=== PATIENT | male | born 1975 | race Caucasian/White ===

== ENCOUNTER 2016-10-02 19:21 | Emergency (ER) | payer OTHER ==
[~2016-10-02] VITALS: Ht 177.8 cm; Wt 147.5 kg
[~2016-10-02 19:21] MED LIST: BACTDS PO; CEPH-443 PO; FIORICET PO; HYDR-762 PO; IBUP800T25 PO; SUMA100T9 PO; XANAX PO
[2016-10-02 19:30] VITALS: Ht 177.8 cm; Wt 147.5 kg
[2016-10-02] MEDS ORDERED: HYDR-902 PO (20:58)
--- NOTE | 2016-10-02 21:07 | ERD ---
ER Documentation Chief Complaint Date/Time DATE: 10/02/16 TIME: 21:05 Chief Complaint back pain- hx-disk problem since 2006 HPI 41-year-old male with a history of chronic back pain comes in with exacerbated pain for the past 2 days. Patient states that he normally takes [place] and has a prescription bottle that is empty from August 05 that was filled by his primary care doctor, Dr Abel. Pain is localized, he denies paresthesias, saddle anesthesia or any trauma. 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 ROS All systems reviewed and are negative except as per history of present illness. Medications Home Meds Active Scripts Hydrocodone/Acetaminophen ([place] 10-325 Tablet) 1 Each Tablet, 1 TAB PO Q6H Y for PAIN, #20 TAB Prov:ELIGIO VELEZ PA-C 10/02/16 Acetamin/Butalbital/Caffeine* (Fioricet*) 1 Tab Tab, 1 TAB PO Q6H Y for PAIN, # 30 TAB Prov:DONALDO STALLWORTH PA-C 06/05/16 Sulfamethoxazole-Trimethoprim* (Bactrim* DS) 800-160 Mg Tab, 1 TAB PO BID for 7 Days, #14 TAB 0 Refills Prov:ANDREW MONTOYA PA-C 02/10/16 Cephalexin* (Keflex*) 500 Mg Capsule, 500 MG PO TID for 7 Days, #21 CAP 0 Refills Prov:ANDREW MONTOYA PA-C 02/10/16 Sumatriptan Succinate* (Imitrex*) 100 Mg Tablet, 100 MG PO BID Y for MIGRAINE HEADACHE for 15 Days, #30 TAB 0 Refills May repeat after 2 hours if needed; MAX 200 mg/24 hours Prov:ANDREW MONTOYA PA-C 02/10/16 Sumatriptan Succinate* (Imitrex*) 100 Mg Tablet, 100 MG PO BID Y for PAIN LEVEL 1-5, #30 TAB 0 Refills May repeat after 2 hours if needed; MAX 200 mg/24 hours Prov:ANDREW MONTOYA PA-C 02/01/16 Ibuprofen* (Motrin*) 800 Mg Tab, 800 MG PO Q8, #30 TAB Prov:TAWANNA LEACH PA-C 11/14/15 Hydrocodone Bit-Acetaminophen* ([place]*) 10-325 Mg Tablet, 1 TAB PO Q6 Y for PAIN , #14 TAB Prov:TAWANNA LEACH PA-C 11/14/15 Reported Medications [Xanax] No Conflict Check, 1 MG PO PRN, 0 Refills 10/31/12 Sumatriptan Succinate* (Imitrex*) 100 Mg Tablet, 100 MG PO prn 06/12/12 Allergies Allergies: Coded Allergies: No Known Allergy (Unverified , 11/14/15) PMhx/Soc Medical and Surgical Hx: pt denies Surgical Hx History of Surgery: No Anesthesia Reaction: No Hx Neurological Disorder: No Hx Respiratory Disorders: No Hx Psychiatric Problems: No Hx Miscellaneous Medical Probl: Yes (MIGRAINE, ANXIETY) Hx Alcohol Use: No Hx Substance Use: No Hx Tobacco Use: Yes (5 CIG/DAY) Smoking Status: Current every day smoker Physical Exam Vitals Vital Signs Date Time Temp Pulse Resp B/P Pulse Ox O2 Delivery O2 Flow Rate FiO2 10/02/16 19:30 98.9 77 20 169/92 100 Physical Exam General: Well-developed, well-nourished. The patient appears in no acute distress. HEENT: Head is normocephalic, atraumatic. No scleral icterus. Neck: Supple. Nontender. Lungs: Clear to auscultation. Normal air movement. Heart: Regular rate and rhythm. S1 and S2 are normal. No murmurs, gallops, or rubs. Abdomen: Soft, nontender, nondistended. Bowel sounds are normoactive. Back: No midline tenderness, strength lower extremities 5 out of 5 bilaterally. Extremities: No clubbing or cyanosis. Normal pulses. Moving extremities x 4. No weakness. Neurologic: Alert and oriented 3. No focal deficits. Skin: Normal turgor. No rash or lesions. Procedures/MDM 41-year-old male comes in with acute on chronic back pain. A CURES report shows that the patient did fill his prescription on August 05 from his primary care doctor and 0 refills. Patient does. Presents with the same pain in the L4-L5 region, with no radiation of pain without signs of saddle anesthesia or loss of bowel bladder function or concerning symptoms for cauda equina. He will be given a short course, until Thursday, he states that his primary care doctor is not available until Thursday and referred short refill will be given. He was asked to follow-up with his primary care doctor is for the refill should not be done through the emergency department. Patient's blood pressure was elevated (>120/80) but appears stable without evidence of hypertension emergency or urgency. The patient was counseled about the risks of hypertension and urged to pursue outpatient monitoring and therapy within a week with their primary care physician. Departure Diagnosis: Primary Impression: Back pain Condition: Good Patient Instructions: Back Pain (Acute Or Chronic) Additional Instructions: Further medication refill should be done through your primary care doctor, please see them this coming Thursday. ELIGIO VELEZ PA-C Oct 02, 2016 21:07
[2016-10-02 21:12] VITALS: BP 135/87; PULSE 78; RESP 16; TEMP 98.1
== END 2016-10-02 21:12 | disposition home or self-care (01) ==
LOC: FTE 19:21
DX: M54.5 Low back pain (principal); F17.210 Nicotine dependence, cigarettes, uncomplicated
CPT/HCPCS: 99283

== ENCOUNTER 2016-10-25 16:44 | Emergency (ER) | payer OTHER ==
[~2016-10-25] VITALS: Wt 151.0 kg
[~2016-10-25 16:44] MED LIST changes: +HYDR-902 PO
[2016-10-25] MEDS ORDERED: MUPI22OI2 NASAL (17:59)
[2016-10-25] MEDS ORDERED: IBUP800T25 PO (17:59)
[2016-10-25] MEDS ORDERED: CEPH-443 PO (17:59)
[2016-10-25] MEDS ORDERED: CEFTRIAXONE 1 GM INJ IM ONE (18:00)
[2016-10-25] MEDS ORDERED: LIDOCAINE 1% (MDV) 20 ML INJ SC ONE (18:00)
--- NOTE | 2016-10-25 18:12 | ERD ---
ER Documentation Chief Complaint Date/Time DATE: 10/25/16 TIME: 18:04 Chief Complaint LEFT KNEE PAIN AND SWELLING FROM A LUMP AND REDNESS AND DRAINAGE HPI 41-year-old male complaining of pain, erythema and swelling at the anterior left knee 1 week. The pain had gotten worse yesterday after he "popped" a skin lump. Patient stated that he has a history of frequent staph infection for the past 3 years, this feels like previous staph infection. He reports subjective fever and chills. He was seen at work clinic yesterday, was given prescription of Bactrim DS. Patient wears kneepads at work, and is on his knees a lot. Denies injuries to the left knee. ROS All systems reviewed and are negative except as per history of present illness. Medications Home Meds Active Scripts Ibuprofen* (Motrin*) 800 Mg Tab, 800 MG PO Q8 Y for PAIN AND OR ELEVATED TEMP, # 30 TAB Prov:SANJANA KIRKLAND. IRON AND STEEL WORK SUPERVISOR 10/25/16 Mupirocin* (Bactroban*) 2% -22 Gram Oint...g., 1 APPLIC NASAL BID for 14 Days, EA Prov:SANJANA KIRKLAND. IR[employer] AND STEEL WORK SUPERVISOR 10/25/16 Cephalexin* (Keflex*) 500 Mg Capsule, 500 MG PO QID for 7 Days, CAP Prov:SANJANA KIRKLAND. IR[employer] AND STEEL WORK SUPERVISOR 10/25/16 Hydrocodone/Acetaminophen ([place] 10-325 Tablet) 1 Each Tablet, 1 TAB PO Q6H Y for PAIN, #20 TAB Prov:ELIGIO VELEZ PA-C 10/02/16 Acetamin/Butalbital/Caffeine* (Fioricet*) 1 Tab Tab, 1 TAB PO Q6H Y for PAIN, # 30 TAB Prov:DONALDO STALLWORTH PA-C 06/05/16 Sulfamethoxazole-Trimethoprim* (Bactrim* DS) 800-160 Mg Tab, 1 TAB PO BID for 7 Days, #14 TAB 0 Refills Prov:ANDREW MONTOYA PA-C 02/10/16 Cephalexin* (Keflex*) 500 Mg Capsule, 500 MG PO TID for 7 Days, #21 CAP 0 Refills Prov:ANDREW MONTOYA PA-C 02/10/16 Sumatriptan Succinate* (Imitrex*) 100 Mg Tablet, 100 MG PO BID Y for MIGRAINE HEADACHE for 15 Days, #30 TAB 0 Refills May repeat after 2 hours if needed; MAX 200 mg/24 hours Prov:ANDREW MONTOYA PA-C 02/10/16 Sumatriptan Succinate* (Imitrex*) 100 Mg Tablet, 100 MG PO BID Y for PAIN LEVEL 1-5, #30 TAB 0 Refills May repeat after 2 hours if needed; MAX 200 mg/24 hours Prov:ANDREW MONTOYA PA-C 02/01/16 Ibuprofen* (Motrin*) 800 Mg Tab, 800 MG PO Q8, #30 TAB Prov:TAWANNA LEACH PA-C 11/14/15 Hydrocodone Bit-Acetaminophen* ([place]*) 10-325 Mg Tablet, 1 TAB PO Q6 Y for PAIN , #14 TAB Prov:TAWANNA LEACH PA-C 11/14/15 Reported Medications [Xanax] No Conflict Check, 1 MG PO PRN, 0 Refills 10/31/12 Sumatriptan Succinate* (Imitrex*) 100 Mg Tablet, 100 MG PO prn 06/12/12 Allergies Allergies: Coded Allergies: No Known Allergy (Unverified , 11/14/15) PMhx/Soc History of Surgery: No Anesthesia Reaction: No Hx Neurological Disorder: No Hx Respiratory Disorders: No Hx Psychiatric Problems: No Hx Miscellaneous Medical Probl: Yes (MIGRAINE, ANXIETY) Hx Alcohol Use: No Hx Substance Use: No Hx Tobacco Use: Yes (5 CIG/DAY) Smoking Status: Never smoker Physical Exam Vitals Vital Signs Date Time Temp Pulse Resp B/P Pulse Ox O2 Delivery O2 Flow Rate FiO2 10/25/16 16:47 99.5 62 21 144/72 98 Physical Exam General impression: Well-developed, well-nourished. Alert, oriented, in no acute distress Head: Normocephalic, atraumatic. Respiration: Normal respiratory effort. Lungs clear to auscultate bilaterally. No wheezes, rales or rhonchi. Cardiovascular: Regular rate and rhythm. No murmurs or extra heart sounds. Extremities: A 3 x 5 cm area of erythema with slight induration noted in the anterior left knee, with a small scab in the center. No streaking. The indurated area is tender to palpation, no fluctuance. No joint line tenderness. Normal range of motion of the left knee. Neuro: Mental status normal, speech normal. Skin: Normal turgor. Psych: Normal mood and affect. Results 24 hrs Current Medications Medications (Trade) Dose Ordered Sig/Tammie Route PRN Reason Start Time Stop Time Status Last Admin Dose Admin Ceftriaxone Sodium (Rocephin) 1 gm ONCE ONCE IM 10/25/16 18:00 10/25/16 18:02 DC Lidocaine (Xylocaine 1% (Mdv) 20 ml) 1 ml ONCE ONCE SC 10/25/16 18:00 10/25/16 18:02 DC Procedures/MDM Well-appearing 41-year-old male with history of frequent cellulitis presented to ED with recurrence of cellulitis on his anterior left knee. Patient is afebrile, low suspicion for septic joint. Low suspicion for fractures, dislocations, or ligamental injuries. Low suspicion for gout. No sign of necrotizing fasciitis. Patient is given Rocephin 1 g IM in the ED. Patient advised to continue taking Bactrim DS, in addition I will also prescribe Keflex for him. Since patient appears to have colonized staph, I will also prescribe eradication therapy for him with Bactroban ointment nasally. Patient is advised to return to eating 2 days for wound check. He may need incision and drainage at that time. Patient appears well, stable for discharge and outpatient management. Medical decision making shared with patient and family. Education provided to patient and family. Patient and family expressed understanding of the plan. Medications on discharge: Keflex, Bactroban, ibuprofen. Follow-up: Primary care provider in 2-3 days or return to ED if worse. Departure Diagnosis: Primary Impression: Cellulitis of left knee Condition: Stable Patient Instructions: Cellulitis Additional Instructions: Return to this facility in 2 DAYS for a follow-up exam.Return sooner if your condition worsens. SANJANA KIRKLAND NP Oct 25, 2016 18:12
[2016-10-28] MEDS ORDERED: HYDR-902 PO (14:20)
== END 2016-10-25 18:18 | disposition home or self-care (01) ==
LOC: FTE 16:44
DX: L03.116 Cellulitis of left lower limb (principal); F17.210 Nicotine dependence, cigarettes, uncomplicated; I10 Essential (primary) hypertension
CPT/HCPCS: 96372; 99284; J0696

== ENCOUNTER 2016-10-28 12:16 | Emergency (ER) | END 2016-10-28 14:52 | disposition home or self-care (01) | DX: L03.116 Cellulitis of left lower limb (principal); F17.210 Nicotine dependence, cigarettes, uncomplicated; I10 Essential (primary) hypertension ==

== ENCOUNTER 2017-06-08 17:10 | Emergency (ER) | payer OTHER ==
[~2017-06-08] VITALS: Ht 175.3 cm; Wt 159.1 kg
[~2017-06-08 17:10] MED LIST changes: +MUPI22OI2 NASAL
[2017-06-08 17:19] VITALS: Ht 175.3 cm; Wt 159.1 kg
[2017-06-08 23:43] LABS: BARBITURATES Negative (NEGATIVE); BENZODIAZEPINES Positive (NEGATIVE); CANNABINOIDS Positive (NEGATIVE); COCAINE Negative (NEGATIVE); OPIATES Positive (NEGATIVE)
[2017-06-09 01:00] VITALS: BP 93/52; PULSE 65; RESP 17; TEMP 98
--- NOTE | 2017-06-09 01:29 | ERD ---
ER Documentation Chief Complaint Date/Time DATE: 06/09/17 TIME: 01:28 Chief Complaint TOOK EDIBLE BROWNIE @11, PER PT UNABLE TO STAND, VERY SLEEPY HPI 41-year-old male here for ingesting a marijuana brownie. Patient is very sleepy since then. No nausea no vomiting no chills. Admits to using marijuana brownie. ROS All systems reviewed and are negative except as per history of present illness. Medications Home Meds Active Scripts Hydrocodone/Acetaminophen ([employer] 10-325 Tablet) 1 Each Tablet, 1 TAB PO Q6H Y for PAIN, #20 TAB Prov:ASMITA MUNIZ PA-C 10/28/16 Ibuprofen* (Motrin*) 800 Mg Tab, 800 MG PO Q8 Y for PAIN AND OR ELEVATED TEMP, # 30 TAB Prov:SANJANA KIRKLAND PLUMBING TECHNICIAN 10/25/16 Mupirocin* (Bactroban*) 2% -22 Gram Oint...g., 1 APPLIC NASAL BID for 14 Days, EA Prov:SANJANA KIRKLAND PLUMBING TECHNICIAN 10/25/16 Cephalexin* (Keflex*) 500 Mg Capsule, 500 MG PO QID for 7 Days, CAP Prov:SANJANA KIRKLAND PLUMBING TECHNICIAN 10/25/16 Hydrocodone/Acetaminophen ([employer] 10-325 Tablet) 1 Each Tablet, 1 TAB PO Q6H Y for PAIN, #20 TAB Prov:ELIGIO VELEZ PA-C 10/02/16 Acetamin/Butalbital/Caffeine* (Fioricet*) 1 Tab Tab, 1 TAB PO Q6H Y for PAIN, # 30 TAB Prov:DONALDO STALLWORTH PA-C 06/05/16 Sulfamethoxazole-Trimethoprim* (Bactrim* DS) 800-160 Mg Tab, 1 TAB PO BID for 7 Days, #14 TAB 0 Refills Prov:ANDREW MONTOYA PA-C 02/10/16 Cephalexin* (Keflex*) 500 Mg Capsule, 500 MG PO TID for 7 Days, #21 CAP 0 Refills Prov:ANDREW MONTOYA PA-C 02/10/16 Sumatriptan Succinate* (Imitrex*) 100 Mg Tablet, 100 MG PO BID Y for MIGRAINE HEADACHE for 15 Days, #30 TAB 0 Refills May repeat after 2 hours if needed; MAX 200 mg/24 hours Prov:ANDREW MONTOYA PA-C 02/10/16 Sumatriptan Succinate* (Imitrex*) 100 Mg Tablet, 100 MG PO BID Y for PAIN LEVEL 1-5, #30 TAB 0 Refills May repeat after 2 hours if needed; MAX 200 mg/24 hours Prov:LINDSAYANDREW PA-C 02/01/16 Ibuprofen* (Motrin*) 800 Mg Tab, 800 MG PO Q8, #30 TAB Prov:TAWANNA LEACH PA-C 11/14/15 Hydrocodone Bit-Acetaminophen* ([employer]*) 10-325 Mg Tablet, 1 TAB PO Q6 Y for PAIN , #14 TAB Prov:TAWANNA LEACH PA-C 11/14/15 Reported Medications [Xanax] No Conflict Check, 1 MG PO PRN, 0 Refills 10/31/12 Sumatriptan Succinate* (Imitrex*) 100 Mg Tablet, 100 MG PO prn 06/12/12 Allergies Allergies: Coded Allergies: No Known Allergy (Unverified , 11/14/15) PMhx/Soc History of Surgery: No Anesthesia Reaction: No Hx Neurological Disorder: No Hx Respiratory Disorders: No Hx Psychiatric Problems: No Hx Miscellaneous Medical Probl: Yes (MIGRAINE, ANXIETY) Hx Alcohol Use: No Hx Substance Use: Yes (edibles) Hx Tobacco Use: Yes Smoking Status: Current every day smoker Physical Exam Vitals Vital Signs Date Time Temp Pulse Resp B/P Pulse Ox O2 Delivery O2 Flow Rate FiO2 06/09/17 01:00 98.0 65 17 93/52 95 Room Air 06/08/17 17:19 98.2 69 18 111/56 92 Physical Exam Const: [] Head: Atraumatic Eyes: Normal Conjunctiva ENT: Normal External Ears, Nose and Mouth. Neck: Full range of motion..~ No meningismus. Resp: Clear to auscultation bilaterally Cardio: Regular rate and rhythm, no murmurs Abd: Soft, non tender, non distended. Normal bowel sounds Skin: No petechiae or rashes Back: No midline or flank tenderness Ext: No cyanosis, or edema Neur: Awake and alert Psych: Normal Mood and Affect Results 24 hrs Laboratory Tests Test 06/08/17 23:03 Urine Opiates Screen Positive Urine Barbiturates Negative Urine Amphetamines Screen Negative Urine Benzodiazepines Screen Positive Urine Cocaine Screen Negative Urine Cannabinoids Positive Procedures/MDM Medical decision-makin-year-old male here with a marijuana ingestion. At this point clinically stable. Observe. Patient will be discharged home. Advised to stop using marijuana Departure Diagnosis: Primary Impression: Accidental overdose Encounter type: initial encounter Qualified Code: T50.901A - Accidental overdose, initial encounter Condition: Stable Patient Instructions: Marijuana Abuse HAFSA MENDOZA Jun 09, 2017 01:29
== END 2017-06-09 01:59 | disposition home or self-care (01) ==
LOC: E/R 17:10
DX: T40.7X1A Poisoning by cannabis (derivatives), accidental (unintentional), initial encounter (principal); F17.210 Nicotine dependence, cigarettes, uncomplicated
CPT/HCPCS: 80307; 99283

== ENCOUNTER 2018-10-24 16:02 | Emergency (ER) | payer OTHER ==
[~2018-10-24] VITALS: Ht 175.3 cm; Wt 173.5 kg
[~2018-10-24 16:02] MED LIST changes: +HYDR-3980 PO; -HYDR-902 PO; -IBUP800T25 PO; +IBUP800T48 PO; +SUMA100T3 PO; -SUMA100T9 PO
[2018-10-24 16:07] VITALS: Ht 175.3 cm; Wt 173.5 kg
[2018-10-24] MEDS ORDERED: ATEN100T PO (18:46)
[2018-10-24] MEDS ORDERED: SUMA100T4 PO (18:47)
[2018-10-24 19:02] VITALS: BP 161/90; PULSE 68; RESP 18
--- NOTE | 2018-10-24 20:10 | ERD ---
ER Documentation Chief Complaint Chief Complaint Complains of headache x 2 days HPI 43-year-old male presents for headache times 2 days. Patient does have a history of migraine. He states that his last Imitrex pill today and a refill. States that the Imitrex does help with the pain. Patient notes 3 out of 10 hea dache currently. He does have photophobia. No other complaints. ROS All systems reviewed and are negative except as per history of present illness. Medications Home Meds Active Scripts Sumatriptan Succinate* (Sumatriptan Succinate*) 100 Mg Tablet, 100 MG PO BID PRN for MIGRAINE HEADACHE, #60 TAB May repeat after 2 hours if needed; MAX 200 mg/24 hours Prov:RENEA BEAVER DO 10/24/18 Atenolol* (Atenolol*) 100 Mg Tablet, 100 MG PO DAILY for HTN, #30 TAB Prov:RENEA BEAVER DO 10/24/18 Hydrocodone/Acetaminophen ([place] 10-325 Tablet) 1 Each Tablet, 1 TAB PO Q6H PRN for PAIN, #20 TAB Prov:ASMITA MUNIZ PA-C 10/28/16 Ibuprofen* (Motrin*) 800 Mg Tab, 800 MG PO Q8 PRN for PAIN AND OR ELEVATED TEMP, #30 TAB Prov:SANJANA KIRKLAND. MANAGER EQUIPMENT 10/25/16 Mupirocin* (Bactroban*) 2% -22 Gram Oint...g., 1 APPLIC NASAL BID for 14 Days, EA Prov:SANJANA KIRKLAND. MANAGER EQUIPMENT 10/25/16 Cephalexin* (Keflex*) 500 Mg Capsule, 500 MG PO QID for 7 Days, CAP Prov:SANJANA KIRKLAND. MANAGER EQUIPMENT 10/25/16 Hydrocodone/Acetaminophen ([place] 10-325 Tablet) 1 Each Tablet, 1 TAB PO Q6H PRN for PAIN, #20 TAB Prov:ELIGIO VELEZ PA-C 10/02/16 Acetamin/Butalbital/Caffeine* (Fioricet*) 1 Tab Tab, 1 TAB PO Q6H PRN for PAIN, #30 TAB Prov:DONALDO STALLWORTH PA-C 06/05/16 Sulfamethoxazole-Trimethoprim* (Bactrim* DS) 800-160 Mg Tab, 1 TAB PO BID for 7 Days, #14 TAB 0 Refills Prov:ANDREW MONTOYA PA-C 02/10/16 Cephalexin* (Keflex*) 500 Mg Capsule, 500 MG PO TID for 7 Days, #21 CAP 0 Refills Prov:LINDSAYANDREW IRENE 02/10/16 Sumatriptan Succinate* (Imitrex*) 100 Mg Tablet, 100 MG PO BID PRN for MIGRAINE HEADACHE for 15 Days, #30 TAB 0 Refills May repeat after 2 hours if needed; MAX 200 mg/24 hours Prov:LINDSAYANDREW IRENE 02/10/16 Sumatriptan Succinate* (Imitrex*) 100 Mg Tablet, 100 MG PO BID PRN for PAIN LEVEL 1-5, #30 TAB 0 Refills May repeat after 2 hours if needed; MAX 200 mg/24 hours Prov:ANDREW MONTOYA PA-C 02/01/16 Ibuprofen* (Motrin*) 800 Mg Tab, 800 MG PO Q8, #30 TAB Prov:TAWANNA LEACH PA-C 11/14/15 Hydrocodone Bit-Acetaminophen* ([place]*) 10-325 Mg Tablet, 1 TAB PO Q6 PRN for PAIN, #14 TAB Prov:TAWANNA LEACH PA-C 11/14/15 Reported Medications [Xanax] No Conflict Check, 1 MG PO PRN, 0 Refills 10/31/12 Sumatriptan Succinate* (Imitrex*) 100 Mg Tablet, 100 MG PO prn 06/12/12 Allergies Allergies: Coded Allergies: No Known Allergy (Unverified , 11/14/15) PMhx/Soc History of Surgery: No Anesthesia Reaction: No Hx Neurological Disorder: No Hx Respiratory Disorders: No Hx Psychiatric Problems: No Hx Miscellaneous Medical Probl: Yes (MIGRAINE, ANXIETY) Hx Alcohol Use: No Hx Substance Use: Yes (edibles) Hx Tobacco Use: Yes Smoking Status: Never smoker Physical Exam Vitals Vital Signs Date Temp Pulse Resp B/P (MAP) Pulse Ox O2 O2 Flow FiO2 Time Delivery Rate 10/24/18 98.0 68 18 161/90 Room Air 19:02 (113) 10/24/18 98.8 64 20 161/95 97 16:07 (117) Physical Exam Const: No acute distress Head: Atraumatic, no temporal area tenderness to palpation Eyes: Normal Conjunctiva, pupils equal, round, reactive to light bilaterally ENT: Normal External Ears, bilateral tympanic membrane intact without erythema or bulging noted, Nose and Mouth. No tonsillar swelling or exudate noted Neck: Full range of motion. No meningismus, no bruits noted Resp: Clear to auscultation bilaterally Cardio: Regular rate and rhythm, no murmurs, bilateral radial and dorsalis pedis pulses intact Skin: No petechiae or rashes Ext: No cyanosis, or edema, 5 out of 5 muscular bilateral upper and lower extremities Neur: Awake and alert, bilateral upper and lower extremity sensation intact Psych: Normal Mood and Affect Procedures/MDM Medical Decision Making: Differential diagnosis includes but not limited to primary headache, subarachnoid hemorrhage, meningitis, temporal arteritis, glaucoma, hypertension, cerebral ischemia, carotid or vertebral arterial dissection, brain tumor. Patient appeared well on physical examination, nontoxic appearing. No history of fever. There is low suspicion for meningitis. Given patient's age and no temporal area tenderness to palpation, low suspicion for temporal arteritis. Patient has no vision changes and pupils are reactive bilaterally, low suspicion for glaucoma. There is also no focal neurologic deficits to suggest a brain tumor. Patient has normal sensation and muscle strength, low suspicion for cerebral ischemia. Given headache is similar to prior headaches, patient possibly has a primary headache. Patient stated that he takes Imitrex at home which does improve his headaches. Patient was decreasing refills on his medications. Patient given prescription for Imitrex refill. Patient did have a elevated blood pressure of 160/90 ER. There was unchanged on repeat. Patient appears stable currently and advised to follow-up with his primary care physician for repeat blood pressure. Patient advised to follow up with PCP in 1-2 days. Patient advised to return to ED for new or worsening symptoms. Patient stable on discharge from the ED. Disclaimer: Inadvertent spelling and grammatical errors are likely due to EHR/dictation software use and do not reflect on the overall quality of patient care. Also, please note that the electronic time recorded on this note does not necessarily reflect the actual time of the patient encounter. Departure Diagnosis: Primary Impression: Migraine Migraine type: unspecified Status migrainosus presence: without status migrainosus Intractability: not intractable Qualified Codes: G43.909 - Migraine, unspecified, not intractable, without status migrainosus Additional Impression: HTN (hypertension) Condition: Fair Patient Instructions: Taking Medicine Safely, High Blood Pressure (Hypertension), Headache, Migraine (Classical) Referrals: [facility] YOU HAVE RECEIVED A MEDICAL SCREENING EXAM AND THE RESULTS INDICATE THAT YOU DO NOT HAVE A CONDITION THAT REQUIRES URGENT TREATMENT IN THE EMERGENCY DEPARTMENT. FURTHER EVALUATION AND TREATMENT OF YOUR CONDITION CAN WAIT UNTIL YOU ARE SEEN IN YOUR DOCTORS OFFICE WITHIN THE NEXT 1-2 DAYS. IT IS YOUR RESPONSIBILITY TO MAKE AN APPOINTMENT FOR FOLOW-UP CARE. IF YOU HAVE A PRIMARY DOCTOR --you should call your primary doctor and schedule an appointment IF YOU DO NOT HAVE A PRIMARY DOCTOR YOU CAN CALL OUR PHYSICIAN REFERRAL HOTLINE AT IF YOU CAN NOT AFFORD TO SEE A PHYSICIAN YOU CAN CHOSE FROM THE FOLLOWING [facility] [id number] [facility]. [facility] [address] [facility] [facility] [address] [facility] [facility] [address] [facility]. [facility] [address] [facility]. [facility]. [address] Additional Instructions: Call your primary care doctor TOMORROW for an appointment during the next 1-2 days.See the doctor sooner or return here if your condition worsens before your appointment time. RENEA BEAVER DO Oct 24, 2018 20:10
== END 2018-10-24 19:03 | disposition home or self-care (01) ==
LOC: FTE 16:02
DX: G43.909 Migraine, unspecified, not intractable, without status migrainosus (principal); I10 Essential (primary) hypertension; Z87.891 Personal history of nicotine dependence
CPT/HCPCS: 99283